=== PATIENT | female | born 1985 | race Hispanic/Latino ===

== ENCOUNTER 2021-06-04 17:32 | Emergency (ER) | payer SELFPAY ==
[~2021-06-04] VITALS: Ht 157.5 cm; Wt 63.5 kg
[2021-06-04 17:34] VITALS: BP 120/73
[2021-06-04 19:35] VITALS: BP 122/75
[2021-06-04] MEDS ORDERED: 0.9%NACL 1000ML 1,000 ML IV SCH (20:00)
[2021-06-04] MEDS ORDERED: CYCLOBENZAPRINE HCL 10 MG TABLET PO ONE (20:00)
[2021-06-04] MEDS ORDERED: PROMETHAZINE HCL 25 MG/ML 1ML AMPULE IM ONE (20:00)
[2021-06-04] MEDS ORDERED: ACETAMINOPHEN 500 MG TABLET PO ONE (20:00)
[2021-06-04 20:18] LABS: APPEARANCE,URINE Clear (CLEAR); BILIRUBIN,URINE Negative (NEGATIVE); COLOR,URINE Yellow (YELLOW); GLUCOSE, URINE (UA) Negative (NEGATIVE); KETONES,URINE Negative (NEGATIVE); LEUKOCYTE ESTERASE ,URINE Negative (NEGATIVE); NITRATE,URINE Negative (NEGATIVE); OCCULT BLOOD,URINE Large (NEGATIVE); PROTEIN,URINE Negative (NEGATIVE); UROBILINOGEN,URINE 0.2 mg/dL (0.2-1.0)
[2021-06-04 20:19] LABS: BASOPHILS % (AUTO) 0.7 % (0.0-5.0); EOSINOPHILS % (AUTO) 0.5 % (0.0-8.0); HEMATOCRIT 40.7 % (36-48); LYMPHOCYTES % (AUTO) 16.1 % (21.0-51.0); MEAN CORPUSCULAR HEMOGLOBIN 29.8 pg (27.0-33.0); MEAN CORPUSCULAR HGB CONC 32.4 g/dL (32.0-36.0); MEAN CORPUSCULAR VOLUME 91.9 fL (79-99); MONOCYTES % (AUTO) 5.2 % (3.0-13.0); NEUTROPHILS % (AUTO) 77.3 % (40.0-77.0); PLATELET COUNT (AUTO) 357 K/uL (130-400); RED BLOOD CELL COUNT(AUTO) 4.43 MIL/uL (4.00-5.50); RED CELL DISTRIBUTION WIDTH 14.6 % (11.0-15.5); WHITE BLOOD COUNT (AUTO) 9.4 K/uL (4.8-10.8)
[2021-06-04 20:27] LABS: CREATININE 0.7 mg/dL (0.5-1.5); POTASSIUM 3.8 mmol/L (3.5-5.1)
[2021-06-04 20:31] LABS: ALBUMIN 3.7 g/dL (3.5-5.0); BILIRUBIN,TOTAL 0.3 mg/dL (0.2-1.0); CRP QUANTITATIVE 7.9 mg/L (0.00-9.0); TOTAL PROTEIN, SERUM 8.5 g/dL (6.0-8.3)
[2021-06-04 20:35] LABS: BACTERIA,URINE Rare /HPF (None Seen); WBC,URINE 0-1 /HPF (0-1)
[2021-06-04 20:36] LABS: SQUAMOUS EPITHELIAL CELL,UR Rare /HPF (0-2)
[2021-06-04] MEDS ORDERED: IBUP-1552 PO (21:49)
[2021-06-04] MEDS ORDERED: NAPR-1180 PO (21:49)
[2021-06-04] MEDS ORDERED: CYCL10 PO (21:49)
[2021-06-04 21:55] VITALS: BP 119/74
== END 2021-06-04 22:02 | disposition home or self-care (01) ==
LOC: EDH 17:32 → EDSEX 17:32 → EDH 22:02
DX: G44.209 Tension-type headache, unspecified, not intractable (principal); E86.0 Dehydration; Z79.1 Long term (current) use of non-steroidal anti-inflammatories (NSAID); Z79.899 Other long term (current) drug therapy; Z88.6 Allergy status to analgesic agent
CPT/HCPCS: 36415; 80053; 81001; 81025; 85025; 86140; 96360; 96361; 96372; 99283; J2550; J7030 ×2